=== PATIENT | male | born 1985 | race Hispanic/Latino ===

== ENCOUNTER 2018-12-30 20:11 | Emergency (ER) | payer BC ==
[~2018-12-30] VITALS: Ht 170.2 cm; Wt 113.4 kg
--- OUTSIDE RECORDS SUMMARY | 2018-12-30 20:13 | XMS REPORT | Continuity of Care Document ---
Author Author [facility] Interface Address Unknown Phone Unavailable Problems Problem Status Onset Date Classification Date Reported Comments Source Body mass index 30+ - obesity 01/15/2018 Diagnosis 01/15/2018 [facility] Muscle spasms of head AND/OR neck 01/15/2018 Diagnosis 01/15/2018 [facility] Neck pain 01/15/2018 Diagnosis 01/15/2018 [facility] Body Mass Index 30+ - Obesity 01/15/2018 Problem 01/15/2018 [facility] Neck Pain 01/15/2018 Problem 01/15/2018 [facility] Muscle Spasms of Head AND/OR Neck 01/15/2018 Problem 01/15/2018 [facility] Spasm of back muscles 07/22/2016 Diagnosis 07/22/2016 [facility] Spasm of Back Muscles Problem 01/15/2018 [facility] Medications Medication Details Route Status Patient Instructions Ordering Provider Order Date Source Cyclobenzaprine hydrochloride 10 MG Oral Tablet cyclobenzaprine 10 mg tablet Take 1 tablet 3 times a day by oral route as needed for 7 days. Active [facility] Ibuprofen 800 MG Oral Tablet ibuprofen 800 mg tablet Take 1 tablet 3 times a day by oral route as needed for 7 days. Active [facility] 1 ML Ketorolac Tromethamine 30 MG/ML Injection ketorolac 30 mg/mL (1 mL) injection solution Inject 1 milliliter (30 mg) by intramuscular route now Active [facility] 1 ML Ketorolac Tromethamine 30 MG/ML Cartridge ketorolac 30 mg/mL (1 mL) injection solution Inject 1 mL every 6 hours by intramuscular route. Active [facility] Naproxen 500 MG Oral Tablet naproxen 500 mg tablet Take 1 tablet twice a day by oral route as needed for pain with food for 7 days. Active [facility] metaxalone 800 MG Oral Tablet [Skelaxin] Skelaxin 800 mg tablet Take 1 tablet 3 times a day by oral route as directed for muscle spasm on empty stomach for 7 days. Active [facility] Allergies, Adverse Reactions, Alerts Substance Category Reaction Severity Reaction type Status Date Reported Comments Source Immunizations Immunization Date Given Site Status Last Updated Comments Source Results Order Name Results Value Reference Range Date Interpretation Comments Source Vital Signs Vital Sign Value Date Comments Source Diastolic (mm Hg) 75 01/15/2018 [facility] Height 67 01/15/2018 [facility] Systolic (mm Hg) 116 01/15/2018 [facility] Weight 238 01/15/2018 [facility] Diastolic (mm Hg) 80 07/22/2016 [facility] Height 67 07/22/2016 [facility] Systolic (mm Hg) 122 07/22/2016 [facility] Weight 238 07/22/2016 [facility] Encounters Location Location Details Encounter Type Encounter Number Reason For Visit Attending Provider ADM Date DC Date Status Source [place] - [facility] - [id number] Perez, GENERAL TELLER: [address] [place] [address], Ph. [id number] Meri Perez 07/22/2016 [facility] [place] - [facility] - [id number] Pickens, GENERAL TELLER-C: [address] [place] [address], Ph. [id number] Rupali Pickens 01/15/2018 [facility] Procedures Procedure Code Date Perfomer Comments Source Hernia Repair W/mesh [id number] [facility] Appendectomy [facility]
--- OUTSIDE RECORDS SUMMARY | 2018-12-30 20:13 | XMS REPORT | Encounter Summary ---
Author Organization Unknown Address [address] [place] [address] Phone [phone] Reason for Visit Medical Complaint; lt shoulder pulled muscle, on and off x 2 days Instructions 1. Spasm of back muscles naproxen 500 mg tablet Skelaxin 800 mg tablet ketorolac 30 mg/mL (1 mL) injection solution Discussion Note: None recorded. Patient educational handouts: No information available. Plan of Care Patient Instructions OK to use warm compress to area. If symptoms not improve in 3-4days, follow up with pcp. Stop advil at home. Reminders Provider Appointments None recorded. Lab None recorded. Referral None recorded. Procedures None recorded. Surgeries None recorded. Imaging None recorded. Medications Name Start Date ketorolac 30 mg/mL (1 mL) injection solution Inject 1 mL every 6 hours by intramuscular route. naproxen 500 mg tablet Take 1 tablet twice a day by oral route as needed for pain with food for 7 days. Skelaxin 800 mg tablet Take 1 tablet 3 times a day by oral route as directed for muscle spasm on empty stomach for 7 days. Medications Administered Name Date ketorolac 30 mg/mL (1 mL) injection solution Inject 1 mL every 6 hours by intramuscular route. [id number] Vitals Height Weight BMI Blood Pressure 5 ft 7 in 238 lbs 37.3 122/80 Lab Results None recorded. Allergies Name Reaction Severity Onset NKDA Problems Name Status Onset Date Source Spasm of Back Muscles Active Encounter Procedures Date Name Performed by Appendectomy Information not available Vaccine List None recorded. 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 History of Present Illness Musculoskeletal Complaint Reported By: Patient HPI: Location: Location:. Quality: sharp, constant. Severity: no pain, improving, severe (8-10). Duration: started 2 days. Onset/Timing: acute. Context: atraumatic. Alleviating factors: OTC medication. Aggravating factors: nothing makes it worse, movement/positioning. Associated Symptoms: no fever, no chills, no warmth, no redness, no swelling, no drainage, no ecchymosis, no weakness, no tingling, no numbness, no radiation, no catching/locking, no popping/clicking, no buckling, no grinding, no instability, no weight loss, no change in bowel/bladder habits Review of Systems Basic Reported By: Patient Constitutional: Constitutional: no fever Eyes: Eyes: no eye complaints Qswp-Yiiz-Nlqhe-Throat: Ears: no ear complaints. Nose: no nose/sinus problems. Mouth/Throat: no sore throat, no bleeding gums, no mouth complaints, no teeth problems Cardiovascular: Cardiovascular: no chest pain, no shortness of breath, no known heart murmur Respiratory: Respiratory: no cough, no wheezing, no shortness of breath Gastrointestinal: Gastrointestinal: no abdominal pain, no vomiting / diarrhea Genitourinary: Genitourinary: no urinary complaints, no discharge Musculoskeletal: Musculoskeletal: no muscle aches, no muscle weakness, no back pain, arthralgias/joint pain Skin: Skin: no abnormal / changing mole, no jaundice, no rashes Neurologic: Neurologic: no loss of consciousness, no weakness, no numbness, no seizures, no dizziness, no headaches Physical Exam Adult Basic, Adult Male Complete Constitutional: General Appearance: healthy-appearing, well-nourished, well-developed. Level of Distress: NAD. Ambulation: ambulating normally Psychiatric: Mental Status: active and alert. Orientation: to time, to place, to person Eyes: Lids and Conjunctivae: non-injected, no discharge, no pallor. Pupils: PERRLA. Corneas: grossly intact. EOM: EOMI. Lens: clear. Sclerae: non-icteric. Vision: acuity grossly intact, peripheral vision grossly intact Eat-Ckmu-Fzxzm-Throat: Ears: no lesions on external ear, no outer ear tenderness, EACs clear, TMs clear. Hearing: no hearing loss. Nose: no lesions on external nose, nares patent, no septal deviation, nasal passages clear, no sinus tenderness, no nasal discharge. Lips, Teeth, and Gums: no mouth or lip ulcers, no bleeding gums, normal dentition. Oropharynx: moist mucous membranes, no erythema, no exudates, tonsils not enlarged Neck: Neck: supple, trachea midline, no masses, FROM. Lymph Nodes: no cervical LAD, no supraclavicular LAD. Thyroid: no enlargement, non-tender, no nodules Lungs: Respiratory effort: no dyspnea, no tachypnea, no use of accessory muscles, no intercostal retractions. Auscultation: breath sounds normal, good air movement Cardiovascular: Heart Auscultation: RRR, no murmurs Musculoskeletal:: Motor Strength and Tone: normal motor strength, normal tone, normal. Joints, Bones, and Muscles: normal movement of all extremities, no bony abnormalities, no contractures, no malalignment, tenderness. Extremities: no cyanosis, no edema, no varicosities, no palpable cord
--- OUTSIDE RECORDS SUMMARY | 2018-12-30 20:13 | XMS REPORT | Encounter Summary ---
Author Organization Unknown Address [address] [place] [address] Phone [phone] Reason for Visit Right Medical Complaint Instructions 1. Neck pain neck pain: care instructions ibuprofen 800 mg tablet ketorolac 30 mg/mL (1 mL) injection solution 2. Muscle spasms of head AND/OR neck neck spasm: exercises cyclobenzaprine 10 mg tablet 3. Body mass index 30+ - obesity Discussion Note Pt is in NAD; Verbalizes understanding of all instructions with no questions at this time. Plan of Care Patient Instructions Recommend RICE therapy: rest, alternate with ice and heat, compression w/neck brace. Recommend take ibuprofen and cyclobenzaprine as directed. First dose of ibuprofen 6-8 pm tonight. Do no operate any machinery or drive while taking these medications. Recommend avoid extreneous exercise, avoid heavy lifting. Activity as tolerated. If worsening of symptoms follow up with PCP. In case of emergency call 911 or go to nearest ER. Recommend follow a low sodium/fat/carb diet and exercise 30-45 mins/d 3-4 days a week once symptoms resolve. Reminders Provider Appointments None recorded. Lab None recorded. Referral None recorded. Procedures None recorded. Surgeries None recorded. Imaging None recorded. Medications Name Start Date cyclobenzaprine 10 mg tablet Take 1 tablet 3 times a day by oral route as needed for 7 days. ibuprofen 800 mg tablet Take 1 tablet 3 times a day by oral route as needed for 7 days. ketorolac 30 mg/mL (1 mL) injection solution Inject 1 milliliter (30 mg) by intramuscular route now Medications Administered Name Date ketorolac 30 mg/mL (1 mL) injection solution Inject 1 milliliter (30 mg) by intramuscular route now [id number] Vitals Height Weight BMI Blood Pressure 5 ft 7 in 238 lbs 37.3 kg/m2 (1) 120/84 mm[Hg] (2) 116/75 mm[Hg] Lab Results None recorded. Allergies Code Code System Name Reaction Severity Status Onset NKDA Problems Name Status Onset Date Source Body Mass Index 30+ - Obesity Active 01/15/2018 Neck Pain Active 01/15/2018 Muscle Spasms of Head AND/OR Neck Active 01/15/2018 Spasm of Back Muscles Active Encounter Procedures Date Name Performed by Hernia Repair W/mesh Information not available Appendectomy Information not available Vaccine List None recorded. Social History Smoking Status Never Smoker Past Encounters 01/15/2018 Neck Pain; Muscle Spasms of Head AND/OR Neck; Body Mass Index 30+ - Obesity Rupali Nelia, [facility]-C: [address] [place] [address], Ph. History of Present Illness Musculoskeletal Complaint Reported By: Patient HPI: Location: Location:. Quality: sharp, deep, constant. Severity: moderate (5- 7), same, pain level 6-7/10. Duration: constant. Onset/Timing: acute, gradual. Context: atraumatic. Alleviating factors: nothing helps. Aggravating factors: twisting, movement/positioning. Associated Symptoms: no fever/chills, no warmth, no redness, no swelling, no drainage, no ecchymosis, no weakness, no tingling, no numbness, no radiation, no catching/locking, no popping/clicking, no buckling, no grinding, no instability, no weight loss, no change in bowel/bladder habits, no muscle aches, no headache Review of Systems:ROS as noted in the HPI Review of Systems Basic Reported By: Patient Physical Exam Adult Basic, Adult Male Complete Reported By: Patient Constitutional: General Appearance: obese. Level of Distress: NAD. Ambulation: ambulating normally Psychiatric: Mental Status: active and alert. Orientation: to time, to place, to person Neck: Neck: trachea midline, no masses, pain with motion. Lymph Nodes: no cervical LAD. Thyroid: no enlargement, non-tender, no nodules Lungs: Respiratory effort: no dyspnea, no tachypnea, no use of accessory muscles, no intercostal retractions. Auscultation: breath sounds normal, good air movement Cardiovascular: Heart Auscultation: RRR, no murmurs Musculoskeletal:: Motor Strength and Tone: normal motor strength, normal tone, normal. Joints, Bones, and Muscles: no bony abnormalities, no contractures, no malalignment, no tenderness, limited ROM. Extremities: no cyanosis, no edema, no varicosities, no palpable cord Neurologic: Gait and Station: normal gait, normal station. Cranial Nerves: grossly intact. Sensation: grossly intact. Reflexes: DTRs 2+ bilaterally throughout Back: Thoracolumbar Appearance: normal curvature
--- OUTSIDE RECORDS SUMMARY | 2018-12-30 20:13 | XMS REPORT ---
Author [email or web address] Address Unknown Phone Unavailable Care Team Providers Care All Around Patternmaker Name Role Phone Unavailable Unavailable Payers Payer Name Policy Type Policy Number Effective Date Expiration Date Problems This patient has no known problems. Allergies, Adverse Reactions, Alerts Allergy Name Allergy Type Status Severity Reaction(s) Onset Date Inactive Date Treating Clinician Comments No Known Allergies DA Active U 2018-11-05 00:00:00 No Known Allergies DA Active U 2016-12-27 00:00:00 Medications This patient has no known medications.
[2018-12-30] MEDS ORDERED: SODIUM CHLORIDE 0.9% 1000ML 1,000 ML IV SCH (20:30)
[2018-12-30] MEDS ORDERED: KETOROLAC TROMETHAMINE 30 MG/ML VIAL IV STA (20:55)
[2018-12-30] MEDS ORDERED: POTASSIUM CHLORIDE 20 MEQ TAB CR PO SCH (21:00)
[2018-12-30] MEDS ORDERED: CYCLOBENZAPRINE5 MG PO (21:46)
[2018-12-30] MEDS ORDERED: KETOROLAC TROME10 MG PO (21:46)
--- NOTE | 2018-12-30 22:04 | Diagnostic Imaging Report ---
CT chest pulmonary embolism protocol CPT code: 49013 INDICATION: Chest pain, shortness of breath ^[id number] ^2100 TECHNIQUE: Thin collimation axial images obtained through the level of the pulmonary arteries with additional imaging through the chest following the uneventful administration of 150 cc of low osmolar, nonionic intravenous contrast. Images reconstructed into coronal and sagittal MIPs for complete evaluation of the tortuous and overlapping pulmonary vascular structures and to reduce patient radiation dose. RADIATION DOSE: Total DLP: 577.75 mGy*cm Estimated effective dose: (DLP x 0.015 x size factor) mSv CTDIvol has been reviewed. It is below the limits set by the Radiation Protocol Committee (RPC). Dose reduction techniques used: Automated exposure control, adjustment of the mAs and/or kVp according to patient size, standardized low-dose protocol, and/or iterative reconstruction technique. COMPARISON: None. FINDINGS: Pulmonary artery: No filling defects are appreciated within the main, left, right, lobar or visualized segmental pulmonary arteries to suggest embolism. Main pulmonary artery measures 3.0 cm. Aorta: The thoracic aorta is not aneurysmal. No evidence for dissection. Lymph nodes: No enlarged axillary, supraclavicular, mediastinal, or hilar lymph nodes. Thyroid: Normal in size without mass in the visualized parenchyma.. Mediastinum: The heart is normal in size. No pericardial effusion. The esophagus is normal.. Lungs: Right Lung: Pleural-based nodule in the middle lobe measures 4 mm. Pleural-based nodule in the lower lobe measures 3 mm. No infiltrates. Left Lung: Subpleural nodule in the medial lower lobe measures 4 mm. No infiltrates. Pleura: No pleural effusion or pleural based mass.. Abdomen: Visualized portions are unremarkable. Bones: No focal osseous lesions. Soft tissues: Unremarkable. IMPRESSION: 1. No evidence of pulmonary embolus or aortic dissection. 2. Subcentimeter pulmonary nodules as described above. Recommend annual surveillance with low-dose screening CT of the chest if there are risk factors for malignancy. Signed by: Dr. Gilma Rosenthal MD on 12/30/2018 10:01 PM
== END 2018-12-30 22:20 | disposition home or self-care (01) ==
LOC: FSED 20:11
DX: R06.09 Other forms of dyspnea (principal); I10 Essential (primary) hypertension; R91.8 Other nonspecific abnormal finding of lung field
CPT/HCPCS: 71275; 80053; 81003; 82553; 83880; 84484; 85025; 85379; 93005; 99284; J1885; J7030